=== PATIENT | female | born 1935 | race Two or more races ===

== ENCOUNTER 2022-08-05 21:42 | Inpatient (IN) | payer MEDICAID, OTHER ==
[~2022-08-05] VITALS: Ht 157.5 cm; Wt 39.5 kg
[2022-08-05] MEDS ORDERED: IV NS 0.9% 500 ML BAG IV ONE (22:00)
--- NOTE | 2022-08-05 22:27 | NUR ---
COVID AND INFLUENZA SWAB COLLECTED
--- NOTE | 2022-08-05 22:42 | NUR ---
IV LINE ESTABLISHED, LAC22G
--- NOTE | 2022-08-05 22:43 | NUR ---
BLOOD COLLECTED AND SENT TO LAB
[2022-08-05 23:13] LABS: BASOPHILS # (AUTO) 0.3 K/uL (0.0-0.2); BASOPHILS % (AUTO) 1.3 % (0.0-2.0); HEMATOCRIT 33 % (33-45); HEMOGLOBIN 10.1 g/dL (11.5-14.8); LYMPHOCYTES # (AUTO) 0.6 K/uL (0.8-4.8); LYMPHOCYTES % (AUTO) 2.9 % (20.0-44.0); MEAN CORPUSCULAR HGB CONC 31 g/dl (31.0-36.0); MEAN CORPUSCULAR VOLUME 67 fL (82-100); MONOCYTES % (AUTO) 4.8 % (2.0-12.0); NEUTROPHILS # (AUTO) 19.1 K/uL (1.8-8.9); PLATELET COUNT (AUTO) 564 K/uL (150-450); RED BLOOD CELL COUNT(AUTO) 4.93 MIL/uL (4.0-5.2)
[2022-08-05 23:24] LABS: CALCIUM, SERUM 9.3 mg/dL (8.5-10.1); CARBON DIOXIDE 29 mmol/L (21-32); CHLORIDE 96 mmol/L (98-107); CREATININE 0.8 mg/dL (0.6-1.3); GLUCOSE 137 mg/dL (74-106); POTASSIUM 3.3 mmol/L (3.5-5.1); SODIUM SERUM 136 mmol/L (136-145); UREA NITROGEN, BLOOD 29 mg/dL (7-18)
[2022-08-05 23:37] LABS: ALANINE AMINOTRANSFERASE 8 U/L (12-78); ALBUMIN 2.6 g/dL (3.4-5.0); ALKALINE PHOSPHATASE 82 U/L (46-116); ASPARTATE AMINOTRANSFERASE 13 U/L (15-37); BILIRUBIN,DIRECT 0.3 mg/dL (0.0-0.2); BILIRUBIN,TOTAL 0.6 mg/dL (0.2-1.0); TOTAL PROTEIN, SERUM 8.9 g/dL (6.4-8.2)
[2022-08-05 23:51] LABS: MAGNESIUM 1.9 mg/dL (1.8-2.4)
[2022-08-06] MEDS ORDERED: CEFTRIAXONE 1GM BAG (ER ONLY) 50 ML IV ONE (00:18)
[2022-08-06] MEDS: CEFTRIAXONE 1 G in IV D5W 50 ML IV ONE ×2 (00:19→00:36)
[2022-08-06] MEDS ORDERED: AZITHROMYCIN 500 MG in IV D5W 250 ML IV ONE (00:30)
[2022-08-06] MEDS ORDERED: AZITHROMYCIN 500 MG VIAL ONE (00:30)
--- NOTE | 2022-08-06 00:54 | NUR ---
report given to juan jose qureshi
[2022-08-06] MEDS ORDERED: TEMAZEPAM 15 MG CAPSULE PO PRN (01:00)
[2022-08-06] MEDS ORDERED: HYDROCODONE/APAP 5/325MG TABLET PO PRN (01:00)
[2022-08-06] MEDS ORDERED: ONDANSETRON HCL/PF 4 MG/2 ML VIAL IVP PRN (01:00)
[2022-08-06] MEDS ORDERED: MAG HYDROX/AL HYDROX/SIMETH 30 ML UDC PO PRN (01:00)
[2022-08-06] MEDS ORDERED: HYDROCODONE/APAP 10/325MG TABLET PO PRN (01:00)
[2022-08-06] MEDS ORDERED: MAGNESIUM HYDROXIDE 30 ML UDC PO PRN (01:00)
[2022-08-06] MEDS ORDERED: ACETAMINOPHEN 325 MG TABLET PO PRN (01:00)
[2022-08-06] MEDS ORDERED: Z GUARD REMEDY 4 OZ OINT TP PRN (01:00)
--- NOTE | 2022-08-06 01:06 | NUR ---
TRANSFERRED TO [facility] FLOOR IN STABLE CONDITION
--- NOTE | 2022-08-06 01:10 | NUR ---
MS SENIOR LEAD PROJECT MANAGER NOTE PT TRANSPORTED VIA GURNEY TO UNIT AT THIS TIME. PT ADMITTED TO MS UNIT FROM ER UNDER NEWSPAPER PHOTOGRAPHER DOROTHEA FOR ADMITTING DX CAP WITH SEPSIS. A/O X1 WITH GARBLED SPEECH. PT ON O2 @ 2LPM VIA NC, TOLERATING WELL. NO SOB OR S/S OF RESPIRATORY DISTRESS. WITH NON PRODUCTIVE COUGH. IV ACCESS LAC 20G SL INTACT AND PATENT. WITH SACRAL WOUND, WOUND CONSULT ORDERED. REFUSED BED BATH AND REFUSED TO REMOVE CLOTHING. PT ORIENTED TO UNIT, STAFF, AND ROOM. PT BELONGINGS ACCOUNTED FOR AND BELONGINGS LIST SIGNED. SAFETY PRECAUTIONS IN PLACE. BED IN LOWEST LOCKED POSITION, HOB ELEVATED, SIDE RAILS UP X3, AND CALL LIGHT AND TABLE WITHIN REACH. ALL NEEDS MET AT THIS TIME.
--- NOTE | 2022-08-06 02:39 | NUR ---
RN NOTE CALLED [facility] TO VERIFY MEDICATIONS ONE HOUR AGO. WAS INFORMED THAT THEY WILL "GET TO IT WHEN THEY CAN". NO MEDICATIONS HAVE BEEN VERIFIED. CHARGE NURSE JANICE AWARE.
[2022-08-06] MEDS: POTASSIUM CL. PREMIX PERIPHER. 50 ML IV SCH ×2 (03:14→04:07)
--- NOTE | 2022-08-06 03:15 | NUR ---
RN NOTE MEDICATION FINALLY VERIFIED. STARTED POTASSIUM IV. ALL NEEDS MET AT THIS TIME.
[2022-08-06 03:22] VITALS: BP 145/60
[2022-08-06 03:38] VITALS: BP 146/60
[2022-08-06] MEDS ORDERED: POTASSIUM CL. PREMIX PERIPHER. 50 ML ONE (03:58)
[2022-08-06 04:23] LABS: BAND % (MANUAL) 3 % (0.0-5.0); BASOPHILS % (MANUAL) 0 % (0.0-2.0); EOSINOPHILS % (MANUAL) 0 % (0-4); LYMPHOCYTES % (MANUAL) 2 % (16-48); MONOCYTES % (MANUAL) 6 % (0-11.0); NEUTROPHILS % (MANUAL) 89 (42-76)
--- NOTE | 2022-08-06 06:52 | NUR ---
MS RN CLOSING NOTE PT AWAKE IN BED. A/O X1 WITH GARBLED SPEECH. PT ON O2 @ 2LPM VIA NC, TOLERATING WELL. NO SOB OR S/S OF RESPIRATORY DISTRESS. WITH NON PRODUCTIVE COUGH. IV ACCESS LAC 20G SL INTACT AND PATENT. ALL DUE MEDS GIVEN ORDERED. KEPT CLEAN AND DRY. SAFETY PRECAUTIONS IN PLACE AT ALL TIMES. BED IN LOWEST LOCKED POSITION, HOB ELEVATED, SIDE RAILS UP X3, AND CALL LIGHT AND TABLE WITHIN REACH. ALL NEEDS MET AT THIS TIME AND WILL ENDORSE TO ONCOMING NURSE FOR MIGDALIA.
--- NOTE | 2022-08-06 07:20 | NUR ---
RN OPENING NOTE RECEIVED PATIENT IN BED, AWAKE, ALERT AND VERBALLY RESPONSIVE. NO SIGNS OF ACUTE DISTRESS NOTED. ON O2 INHALATION @2LPM VIA N/C, BREATHING EVEN AND UNLABORED. DENIES ANY PAIN OR DISCOMFORT AT THIS TIME. NOTED WITH IV ACCESS ON LEFT AC #20G, INTACT AND PATENT WITH IVF OF NS @ 75ML/HR. SAFETY MEASURE IN PLACE. BED IN LOWEST AND LOCKED POSITION, SIDE RAILS UP X2, CALL LIGHT PLACED WITHIN EASY REACH. WILL CONTINUE TO MONITOR PATIENT.
[2022-08-06] MEDS: IV NS 0.9% 1,000 ML IV PRN ×2 (07:28→22:20)
[2022-08-06 08:00] VITALS: BP 162/74
[2022-08-06] MEDS: PANTOPRAZOLE 40 MG TABLET.DR PO SCH (08:25)
[2022-08-06] MEDS ORDERED: CEFEPIME 1 GM in IV D5W 50 ML IV SCH (09:00)
--- NOTE | 2022-08-06 09:09 | NUR ---
WOUND CARE CONSULT: PT ADAMANTLY REFUSED SKIN ASSESSMENT. ADMISSION PHOTO INDICATES SACRAL DEEP TISSUE INJURY PRESENT ON ADMISSION. RECOMMENDATIONS MADE FOR SKIN PROTECTION. DISCUSSED WITH NURSING STAFF. MD IN AGREEMENT WITH PLAN OF CARE.
[2022-08-06] MEDS: CEFEPIME 2 GM in IV D5W 100 ML IV SCH (10:04)
--- NOTE | 2022-08-06 13:29 | NUR ---
Accounts Payable Analyst Consult dairy farmworker received a consult request for a possible APS report due to pt. living alone. Pt. is a 87 year old white female who was admitted for failure to thrive. SW met with pt. at bedside. SW attempted to conduct interview but pt appeared confused and did not want to be interviewed. SW offered pt. senior resources in which pt. refused. HARVEY discussed with nurse Ada who shared that pt.'s nephew (POA) would have more information and wanted to speak to a SW. HARVEY discussed the need for an APS report for neglect in which the nurse was agreeable. HARVEY will make an APS report through [facility] for possible self neglect.
--- NOTE | 2022-08-06 13:30 | NUR ---
Barber Collateral Note HARVEY contacted the pt.'s Power of Collector Of Internal Revenue (POA) who is the pt.'s nephew (Ghanshyam Camarillo - [phone]) to gather more information. Per POA, pt. [place] [address] and her room does not have a kitchen. Per nephew, she has refused SNF and LONGTERM and board and Care facilities but pt is unable to take care of herself, will not take her medication, will not eat or drink). POA expressed concern that she needs more help than she is getting. HARVEY informed POA that she will make an APS report for self neglect to makes sure pt. is being taken care of. POA inquired about placement for pt. in which HARVEY directed POA to disease case manager rn in which pt. was agreeable.
--- NOTE | 2022-08-06 14:16 | NUR ---
APS Report HARVEY made an APS report through the [facility]. The reference number is: [id number].
[2022-08-06 16:00] VITALS: BP 149/80
[2022-08-06] MEDS: GUAIFENESIN 300 MG/15 ML UDC PO PRN ×2 (17:37→23:46)
--- NOTE | 2022-08-06 18:40 | NUR ---
RN CLOSING NOTE PATIENT IN BED, AWAKE, ALERT AND VERBALLY RESPONSIVE. NO SIGNS OF ACUTE DISTRESS NOTED. REMAINS ON O2 INHALATION @2LPM VIA N/C, BREATHING EVEN AND UNLABORED. STILL NOTED WITH NON-PRODUCTIVE COUGH. COUGH MEDICATION GIVEN ORDERED. IV ACCESS ON LEFT AC #20G, INTACT AND PATENT WITH IVF OF NS @ 75ML/HR INFUSING WELL. PATIENT WITH EPISODES OF REFUSING CARE, WITHDRAWN, WANTED TO BE LEFT ALONE. SAFETY MEASURE IN PLACE. BED IN LOWEST AND LOCKED POSITION, SIDE RAILS UP X2, CALL LIGHT PLACED WITHIN EASY REACH. WILL ENDORSE TO NEXT SHIFT FOR CONTINUITY OF CARE.
--- NOTE | 2022-08-06 19:15 | NUR ---
MS RN OPENING NOTE PATIENT IN BED, AWAKE, CONFUSED AND TALKED WITH HERSELF. SHE IS ON 2 LPM OF OXYGEN VIA NC, NO SIGNS OF ACUTE DISTRESS NOTED. BREATHING EVEN AND UNLABORED. PT HAS NON-PRODUCTIVE COUGH. IV ACCESS ON LEFT AC #20G, INTACT AND PATENT WITH IVF OF NS @ 75ML/HR; INFUSING WELL. SAFETY MEASURE IN PLACE. BED IN LOWEST AND LOCKED POSITION, SIDE RAILS UP X3, CALL LIGHT AND TABLE WITHIN EASY REACH. WILL CONTINUE MONITOR THE PATIENT AND PROVIDE THE CARE PATIENT NEEDS.
[2022-08-06 20:00] VITALS: BP 148/78
[2022-08-06] MEDS: ALBUTEROL FS 2.5 MG/0.5 ML VIAL.NEB NEB SCH (21:25)
[2022-08-06] MEDS: IPRATROPIUM NEB FS 0.5 MG/2.5 ML AMPUL.NEB NEB SCH (21:25)
[2022-08-06] MEDS: AZITHROMYCIN 500 MG in IV D5W 250 ML IV SCH (21:25)
[2022-08-07] MEDS: ALBUTEROL FS 2.5 MG/0.5 ML VIAL.NEB NEB SCH ×4 (02:09→19:54)
[2022-08-07] MEDS: IPRATROPIUM NEB FS 0.5 MG/2.5 ML AMPUL.NEB NEB SCH ×4 (02:09→19:54)
--- NOTE | 2022-08-07 04:50 | NUR ---
MS RN NOTE PATIENT IS CONFUSED AND PULLED OUT HER IV ACCESS. ASSESSED THE PATIENT AND APPLIED THE BANDAGE AT THE SITE. PATIENT REFUSED BEING INSERTED ANOTHER IV ACCESS. CHARGE NURSE, LOVELY, NOTIFIED.
[2022-08-07 06:04] LABS: BASOPHILS % (AUTO) 0.1 % (0.0-2.0); EOSINOPHILS % (AUTO) 0.2 % (0.0-6.0); HEMATOCRIT 25 % (33-45); HEMOGLOBIN 7.9 g/dL (11.5-14.8); LYMPHOCYTES # (AUTO) 1.2 K/uL (0.8-4.8); LYMPHOCYTES % (AUTO) 7.9 % (20.0-44.0); MEAN CORPUSCULAR HGB CONC 31 g/dl (31.0-36.0); MEAN CORPUSCULAR VOLUME 66 fL (82-100); MONOCYTES # (AUTO) 1.1 K/uL (0.1-1.30); MONOCYTES % (AUTO) 7.3 % (2.0-12.0); NEUTROPHILS # (AUTO) 12.7 K/uL (1.8-8.9); NEUTROPHILS % (AUTO) 84.5 % (43.0-81.0); PLATELET COUNT (AUTO) 428 K/uL (150-450); RED BLOOD CELL COUNT(AUTO) 3.81 MIL/uL (4.0-5.2); WHITE BLOOD COUNT (AUTO) 15.1 K/uL (4.3-11.0)
[2022-08-07 06:41] LABS: ALANINE AMINOTRANSFERASE 8 U/L (12-78); ALBUMIN 1.8 g/dL (3.4-5.0); ALKALINE PHOSPHATASE 61 U/L (46-116); ASPARTATE AMINOTRANSFERASE 13 U/L (15-37); BILIRUBIN,DIRECT 0.2 mg/dL (0.0-0.2); BILIRUBIN,TOTAL 0.4 mg/dL (0.2-1.0); CALCIUM, SERUM 7.9 mg/dL (8.5-10.1); CARBON DIOXIDE 28 mmol/L (21-32); CHLORIDE 100 mmol/L (98-107); CREATININE 0.6 mg/dL (0.6-1.3); GLUCOSE 106 mg/dL (74-106); MAGNESIUM 1.6 mg/dL (1.8-2.4); PHOSPHORUS 2.4 mg/dL (2.5-4.9); POTASSIUM 3.1 mmol/L (3.5-5.1); SODIUM SERUM 134 mmol/L (136-145); TOTAL PROTEIN, SERUM 6.4 g/dL (6.4-8.2); UREA NITROGEN, BLOOD 16 mg/dL (7-18)
[2022-08-07 06:54] LABS: THYROID STIMULATING HORMONE 3.341 uIU/mL (0.358-3.74)
[2022-08-07] MEDS: PANTOPRAZOLE 40 MG TABLET.DR PO SCH ×3 (07:30→09:23)
--- NOTE | 2022-08-07 07:30 | NUR ---
MS RN CLOSING NOTE PATIENT IS IN BED, AWAKE, CONFUSED AND TALKED TO HERSELF. SHE IS ON 2 LPM OF OXYGEN VIA NC, NO SIGNS OF ACUTE DISTRESS NOTED. BREATHING EVEN AND UNLABORED. THROUGH THE NIGHT, BREATHING TREATMENT AND PRN COUGH SYRUP WERE GIVEN PER MD ORDER; TOLERATED WELL. IV ACCESS HAS BEEN PULLED OUT BY THE PATIENT; AND PATIENT IS REFUSING TO HAVE ANOTHER INSERTION OF THE IV ACCESS. SAFETY MEASURE IN PLACE. BED IN LOWEST AND LOCKED POSITION, SIDE RAILS UP X3, CALL LIGHT AND TABLE WITHIN EASY REACH. ENDORSED THE DAY SHIFT NURSE ABOUT THE PATIENT'S CONDITION.
[2022-08-07 08:00] VITALS: BP 120/55
[2022-08-07] MEDS: CEFEPIME 2 GM in IV D5W 100 ML IV SCH (09:00)
[2022-08-07] MEDS: GUAIFENESIN 300 MG/15 ML UDC PO PRN (09:21)
--- NOTE | 2022-08-07 09:27 | NUR ---
PATIENT KEPT ON REFUSING IV INSERTION. SHE ALSO REFUSED PROTONIX THIS AM AND ONLY WANTS HER COUGH MEDICATION.
[2022-08-07] MEDS ORDERED: POTASSIUM CHLORIDE 20 MEQ POWDER PACKET PO ONE (10:00)
[2022-08-07 11:37] LABS: LYMPHOCYTES % (MANUAL) 10 % (16-48); MONOCYTES % (MANUAL) 6 % (0-11.0); NEUTROPHILS % (MANUAL) 84 (42-76)
[2022-08-07] MEDS: Magnesium 1GM/D5W 100ML PREMIX 100 ML IV SCH ×2 (11:42→12:02)
[2022-08-07] MEDS ORDERED: NEUTRA PHOS 1 POWD.PACKET PO ONE (12:00)
[2022-08-07] MEDS: ENSURE CLEAR 237 ML LIQUID (MIX BERRY) PO SCH ×2 (12:19→16:13)
--- NOTE | 2022-08-07 12:19 | NUR ---
MARIO Oro MD WAS MADE AWARE ABOUT PT'S REFUSAL TO HAVE IV INSERTION.
[2022-08-07 16:00] VITALS: BP 146/84
--- NOTE | 2022-08-07 17:54 | NUR ---
END OF SHIFT SUMMARY PATIENT IS A/O X1-2, ON RA, SATURATING WELL. UNCOOPERATIVE. STILL NO IV ACCESS. PT DOESN'T WANT TO TAKE MEDS EXCEPT FOR COUGH SYRUP. INCONTINENCE CARE PROVIDED. SAFETY MEASURES MAINTAINED. BED IN LOWEST POSITION, BRAKES LOCKED. SIDE RAILS UP X2. CALL LIGHT WITHIN REACH. WILL ENDORSE CONTINUITY OF CARE TO ONCOMING SHIFT.
--- NOTE | 2022-08-07 19:00 | NUR ---
MS RN OPENING NOTE PATIENT IN BED, AWAKE, CONFUSED AND TALKED TO HERSELF. SHE IS ON 2 LPM OF OXYGEN VIA NC, NO SIGNS OF ACUTE DISTRESS NOTED. BREATHING EVEN AND UNLABORED. ACCORDING TO THE CHANGE SHIFT REPORT, THERE ARE NO IV ACCESS ON THE PATIENT. MD AWARE. EDUCATED THE PATIENT THAT SHE NEEDED AN IV ACCESS SO SHE COULD HAVE HER IV ANTIBIOTICS, PATIENT REFUSED. SAFETY MEASURE IN PLACE. BED IN LOWEST AND LOCKED POSITION, SIDE RAILS UP X3, CALL LIGHT AND TABLE WITHIN EASY REACH. WILL CONTINUE MONITOR THE PATIENT AND PROVIDE THE CARE PATIENT NEEDS.
[2022-08-07 20:00] VITALS: BP 132/50
--- NOTE | 2022-08-07 20:56 | NUR ---
MS RN NOTE REORIENTED THE PATIENT AND EDUCATED THE PATIENT THAT SHE HAS IV MEDICATION DUE. WE NEED TO INSERT AN IV ACCESS FOR HER. PATIENT SHOWS HER LEFT AC AND FA, AND SAID "NO". "I DON'T WANT IT". CHARGE NURSE, LOVELY, NOTIFIED.
[2022-08-07] MEDS: AZITHROMYCIN 500 MG in IV D5W 250 ML IV SCH (21:00)
--- NOTE | 2022-08-07 21:51 | NUR ---
MS RN NOTE PATIENT REFUSED TO HAVE IV ACCESS AND REFUSED TO HAVE IV MEDICATION DUE AT 2100. CHARGE NURSE, LOVELY, NOTIFIED.
[2022-08-08] VITALS: BP 163/83
[2022-08-08] MEDS: IPRATROPIUM NEB FS 0.5 MG/2.5 ML AMPUL.NEB NEB SCH ×4 (02:00→20:12)
[2022-08-08] MEDS: ALBUTEROL FS 2.5 MG/0.5 ML VIAL.NEB NEB SCH ×4 (02:00→19:30)
[2022-08-08 05:45] LABS: BASOPHILS % (AUTO) 0.3 % (0.0-2.0); EOSINOPHILS % (AUTO) 0.8 % (0.0-6.0); HEMATOCRIT 25 % (33-45); HEMOGLOBIN 7.9 g/dL (11.5-14.8); LYMPHOCYTES % (AUTO) 13.3 % (20.0-44.0); MEAN CORPUSCULAR HGB CONC 32 g/dl (31.0-36.0); MEAN CORPUSCULAR VOLUME 66 fL (82-100); MONOCYTES # (AUTO) 0.8 K/uL (0.1-1.30); MONOCYTES % (AUTO) 10.4 % (2.0-12.0); NEUTROPHILS # (AUTO) 5.5 K/uL (1.8-8.9); NEUTROPHILS % (AUTO) 75.2 % (43.0-81.0); PLATELET COUNT (AUTO) 379 K/uL (150-450); RED BLOOD CELL COUNT(AUTO) 3.78 MIL/uL (4.0-5.2); WHITE BLOOD COUNT (AUTO) 7.3 K/uL (4.3-11.0)
[2022-08-08 05:59] LABS: CALCIUM, SERUM 7.8 mg/dL (8.5-10.1); CARBON DIOXIDE 29 mmol/L (21-32); CHLORIDE 100 mmol/L (98-107); CREATININE 0.6 mg/dL (0.6-1.3); GLUCOSE 93 mg/dL (74-106); MAGNESIUM 1.6 mg/dL (1.8-2.4); POTASSIUM 3.2 mmol/L (3.5-5.1); SODIUM SERUM 137 mmol/L (136-145); UREA NITROGEN, BLOOD 13 mg/dL (7-18)
--- NOTE | 2022-08-08 07:09 | NUR ---
MS RN CLOSING NOTE PATIENT IN BED, SLEEPING. SHE IS ON 2 LPM OF OXYGEN VIA NC, NO SIGNS OF ACUTE DISTRESS NOTED. BREATHING EVEN AND UNLABORED. SHE REFUSED MEDICATION AND IV INSERTION DURING THE SHIFT. EDUCATED THE PATIENT THAT SHE NEEDED AN IV ACCESS SO SHE COULD HAVE HER IV ANTIBIOTICS, PATIENT REFUSED. SAFETY MEASURE IN PLACE. BED IN LOWEST AND LOCKED POSITION, SIDE RAILS UP X3, CALL LIGHT AND TABLE WITHIN EASY REACH. WILL ENDORSE NEXT SHIFT NURSE FOR CONTINUING PATIENT CARE.
--- NOTE | 2022-08-08 07:48 | NUR ---
MS RN OPENING NOTE Patient in bed, asleep. A/O x 1, confused. On O2 at 2 LPM via NC. No SOB or s/s of distress noted. No IV access, patient refusing IV re-insertion, MD aware per night guard nurse. Safety precautions in place: bed in low, locked position; siderailsup x 2; call light within reach. Will continue to monitor.
[2022-08-08] MEDS: ENSURE CLEAR 237 ML LIQUID (MIX BERRY) PO SCH ×3 (08:15→17:42)
[2022-08-08] MEDS: CEFEPIME 2 GM in IV D5W 100 ML IV SCH (09:00)
--- NOTE | 2022-08-08 09:00 | NUR ---
RN NOTE Patient is refusing IV -reinsertion and IV antibiotics. Spoke to patient's nephew about patient refusing everything.
[2022-08-08] MEDS ORDERED: K PHOS NEUTRAL 250 MG TABLET PO ONE (10:00)
[2022-08-08] MEDS ORDERED: MAGNESIUM OXIDE 400 MG TABLET PO ONE (10:00)
[2022-08-08] MEDS ORDERED: POTASSIUM CHLORIDE 20 MEQ TAB.PRT.SR PO SCH (10:00)
--- NOTE | 2022-08-08 10:00 | NUR ---
RN NOTE Patient refused Potassium and magnesium replacement. Ghanshyam, nephew notified. Spoke and updated patient's nephew about patient condition. Aman charge nurse spoke with him as well.
[2022-08-08] MEDS ORDERED: OLANZAPINE 2.5 MG TABLET PO PRN (16:30)
[2022-08-08] MEDS ORDERED: OLANZAPINE 10 MG VIAL IM PRN (17:30)
--- NOTE | 2022-08-08 18:25 | NUR ---
RN NOTE Patient refusing all meds and treatments, getting agitated. PRN Zyprexa 2.5 mg given. After administration, was able to re-insert IV on LFA #22, flushes well.
--- NOTE | 2022-08-08 19:30 | NUR ---
MS RN CLOSING NOTE Patient in bed, resting. A/O x 1, confused. On O2 at 2 LPM via NC. No SOB or s/s of distress noted. IV access on LFA #22, intact and patent. All needs attended to. Patient kept clean and dry. Safety precautions in place: bed in low, locked position; siderailsup x 2; call light within reach. Will endorse to button broacher nurse for MIGDALIA.
--- NOTE | 2022-08-08 19:45 | NUR ---
MS RN OPENING NOTES: RECEIVED PATIENT AWAKE IN BED, BED IN LOW POSITION, CALL LIGHTS WITHIN REACH, NO COMPLAIN OF PAIN AND DISCOMFORT AT THIS TIME, ON ROOM AIR SATURATING WELL, PATIENT IS A/OX1 CONFUSED, IV LINE AT RFA#22 WITH ONGOING 0.2SQI035HP/HR INFUSING WELL, PATIENT KEPT CLEAN AND DRY ALL NEEDS MET WILL CONTINUE TO MONITOR.
[2022-08-08 20:00] VITALS: BP 144/69
[2022-08-08] MEDS: AZITHROMYCIN 500 MG in IV D5W 250 ML IV SCH (21:45)
[2022-08-09] MEDS: ALBUTEROL FS 2.5 MG/0.5 ML VIAL.NEB NEB SCH ×4 (01:30→19:30)
[2022-08-09] MEDS: IPRATROPIUM NEB FS 0.5 MG/2.5 ML AMPUL.NEB NEB SCH ×5 (01:55→19:49)
[2022-08-09 06:01] LABS: CALCIUM, SERUM 8.2 mg/dL (8.5-10.1); CREATININE 0.6 mg/dL (0.6-1.3); MAGNESIUM 1.5 mg/dL (1.8-2.4); PHOSPHORUS 2.8 mg/dL (2.5-4.9); POTASSIUM 2.9 mmol/L (3.5-5.1)
--- NOTE | 2022-08-09 06:20 | NUR ---
MS RN CLOSING NOTES: PATIENT SLEEP IN BED COMFORTABLY, AROUSABLE TO VERBAL STIMULI, BED IN LOW POSITION, CALL LIGHTS WITHIN REACH, NO COMPLAIN OF PAIN AND DISCOMFORT AT THIS TIME, ON O2 INHALATION AT 2LPM SATURATING WELL,IV LINE AT RFA#22 WITH ONGOING NSS@75ML/HR INFUSING WELL, PATIENT KEPT CLEAN AND DRY ALL NEEDS MET ENDORSE TO INCOMING SHIFT.
[2022-08-09] MEDS: PANTOPRAZOLE 40 MG TABLET.DR PO SCH ×2 (07:30→07:45)
--- NOTE | 2022-08-09 07:35 | NUR ---
MS RN OPENING NOTES: RECEIVED PATIENT AWAKE IN BED , A/O X 1 WITH CONFUSION , NO COMPLAIN OF PAIN AND DISCOMFORT AT THIS TIME, ON ROOM AIR WITH NO SOB OR DISTRESS NOTED , IV LINE AT RFA#22 WITH ONGOING 0.9 NS 75ML/HR INFUSING WELL, SAFETY MEASURES PROVIDED , BED IN LOWEST POSITION , SIDE RAILS UP X 2 AND WILL CONTINUE TO MONITOR FOR ANY CHANGES .
[2022-08-09 07:48] LABS: BASOPHILS % (AUTO) 0.4 % (0.0-2.0); EOSINOPHILS % (AUTO) 1.1 % (0.0-6.0); HEMATOCRIT 27 % (33-45); HEMOGLOBIN 8.5 g/dL (11.5-14.8); LYMPHOCYTES # (AUTO) 1.1 K/uL (0.8-4.8); LYMPHOCYTES % (AUTO) 11.3 % (20.0-44.0); MEAN CORPUSCULAR HGB CONC 31 g/dl (31.0-36.0); MEAN CORPUSCULAR VOLUME 66 fL (82-100); MONOCYTES % (AUTO) 10.6 % (2.0-12.0); NEUTROPHILS # (AUTO) 7.4 K/uL (1.8-8.9); NEUTROPHILS % (AUTO) 76.6 % (43.0-81.0); PLATELET COUNT (AUTO) 420 K/uL (150-450); RED BLOOD CELL COUNT(AUTO) 4.11 MIL/uL (4.0-5.2); WHITE BLOOD COUNT (AUTO) 9.7 K/uL (4.3-11.0)
[2022-08-09 08:00] VITALS: BP 144/66
[2022-08-09] MEDS: ENSURE CLEAR 237 ML LIQUID (MIX BERRY) PO SCH ×3 (08:54→17:04)
[2022-08-09] MEDS: POTASSIUM CHLORIDE 20 MEQ TAB.PRT.SR PO SCH ×2 (10:00→10:05)
[2022-08-09] MEDS: CEFEPIME 2 GM in IV D5W 100 ML IV SCH (10:02)
[2022-08-09] MEDS: MAGNESIUM OXIDE 400 MG TABLET PO ONE ×2 (10:05→10:38)
[2022-08-09] MEDS: Magnesium 1GM/D5W 100ML PREMIX 100 ML IV SCH ×2 (11:18→12:11)
[2022-08-09] MEDS: POTASSIUM CL. PREMIX PERIPHER. 50 ML IV SCH ×6 (11:21→16:31)
[2022-08-09] MEDS ORDERED: OLANZAPINE 10 MG VIAL IM PRN (12:30)
--- NOTE | 2022-08-09 19:20 | NUR ---
MS RN CLOSING NOTES: PATIENT AWAKE IN BED , A/O X 1 WITH CONFUSION , NO COMPLAIN OF PAIN AND DISCOMFORT AT THIS TIME, ON ROOM AIR WITH NO SOB OR DISTRESS NOTED , IV LINE AT RFA#22 WITH ONGOING 0.9 NS 75ML/HR INFUSING WELL, ALL DUE MEDS GIVEN ORDERED , NOTED WITH LOW MAGNESIUM LEVEL AND REPLACED WITH 2 GM IV OF MG TOLERATED WELL , K WITH 2.9 AND WITH ORDER OF IV OF 60 MEQ ORDERED GIVEN AND TOLERATED WELL , SAFETY MEASURES PROVIDED , BED IN LOWEST POSITION , SIDE RAILS UP X 2 AND ENDORSED TO NEXT SHIFT .
[2022-08-09 20:00] VITALS: BP 154/68
--- NOTE | 2022-08-09 20:00 | NUR ---
MS RN OPENING NOTES RECEIVED PATIENT AWAKE IN BED, A/O X 1 WITH CONFUSION. NO COMPLAIN OF PAIN AND DISCOMFORT AT THIS TIME, ON ROOM AIR WITH NO SOB OR DISTRESS NOTED. IV ACCESS AT RFA#22 WITH ONGOING 0.9 NS @ 75ML/HR INFUSING WELL, SAFETY MEASURES MAINTAINED, WILL CONTINUE TO MONITOR.
[2022-08-09] MEDS: AZITHROMYCIN 500 MG in IV D5W 250 ML IV SCH (20:40)
[2022-08-09] MEDS: IV NS 0.9% 1,000 ML IV PRN (23:02)
[2022-08-10] MEDS: ALBUTEROL FS 2.5 MG/0.5 ML VIAL.NEB NEB SCH ×2 (00:49→07:35)
[2022-08-10] MEDS: IPRATROPIUM NEB FS 0.5 MG/2.5 ML AMPUL.NEB NEB SCH ×4 (00:49→19:30)
[2022-08-10 06:11] LABS: BASOPHILS # (AUTO) 0.1 K/uL (0.0-0.2); BASOPHILS % (AUTO) 0.6 % (0.0-2.0); EOSINOPHILS % (AUTO) 1.1 % (0.0-6.0); HEMATOCRIT 27 % (33-45); HEMOGLOBIN 8.5 g/dL (11.5-14.8); LYMPHOCYTES # (AUTO) 1.3 K/uL (0.8-4.8); LYMPHOCYTES % (AUTO) 13.2 % (20.0-44.0); MEAN CORPUSCULAR HGB CONC 32 g/dl (31.0-36.0); MEAN CORPUSCULAR VOLUME 67 fL (82-100); MONOCYTES # (AUTO) 1.3 K/uL (0.1-1.30); MONOCYTES % (AUTO) 12.8 % (2.0-12.0); NEUTROPHILS # (AUTO) 7.2 K/uL (1.8-8.9); NEUTROPHILS % (AUTO) 72.3 % (43.0-81.0); PLATELET COUNT (AUTO) 410 K/uL (150-450)
--- NOTE | 2022-08-10 06:40 | NUR ---
MS RN CLOSING NOTES PATIENT AWAKE IN BED, A/O X 1 WITH CONFUSION. NO COMPLAIN OF PAIN AND DISCOMFORT AT THIS TIME, ON ROOM AIR WITH NO SOB OR DISTRESS NOTED. IV ACCESS AT RFA#22 WITH ONGOING 0.9 NS @ 75ML/HR INFUSING WELL, SAFETY MEASURES MAINTAINED, WILL ENDORSE TO NEXT SHIFT RN FOR MIGDALIA.
[2022-08-10 07:00] VITALS: BP 132/63
[2022-08-10] MEDS: PANTOPRAZOLE 40 MG TABLET.DR PO SCH (07:25)
[2022-08-10 07:29] LABS: CALCIUM, SERUM 8.2 mg/dL (8.5-10.1); CARBON DIOXIDE 27 mmol/L (21-32); CHLORIDE 105 mmol/L (98-107); CREATININE 0.5 mg/dL (0.6-1.3); GLUCOSE 93 mg/dL (74-106); POTASSIUM 3.8 mmol/L (3.5-5.1); SODIUM SERUM 139 mmol/L (136-145); UREA NITROGEN, BLOOD 6 mg/dL (7-18)
--- NOTE | 2022-08-10 07:45 | NUR ---
RN OPENING NOTE RECEIVED PATIENT AWAKE IN BED , A/O X 1 WITH CONFUSION, NO COMPLAIN OF PAIN AND DISCOMFORT AT THIS TIME, ON ROOM AIR WITH NO SOB OR DISTRESS NOTED , IV LINE AT RFA#22 RUNNING NS 75ML/HR INFUSING WELL. SAFETY MEASURES IMPLEMENTED: CALL LIGHT AND TABLE WITHIN REACH, SIDE RAILS UP X 2, BED IN LOWEST LOCKED POSITION. WILL CONTINUE TO MONITOR.
[2022-08-10] MEDS: ENSURE CLEAR 237 ML LIQUID (MIX BERRY) PO SCH ×3 (08:02→16:18)
[2022-08-10] MEDS: CEFEPIME 2 GM in IV D5W 100 ML IV SCH (08:04)
[2022-08-10] MEDS: ALBUTEROL FS 2.5 MG/3 ML VIAL.NEB NEB SCH ×3 (08:12→19:30)
--- NOTE | 2022-08-10 10:35 | NUR ---
RN NOTE PATIENT FOUND ON FLOOR @1025 BY ANOTHER RN. ASSESSED PATIENT. NO PAIN, VS STABLE, NO LOC INJURY. PT EVAL. NO INJURIES AT THE MOMENT. PATIENT ACCOMPANIED WITH 2 RN BACK TO BED. BED ALARM IS ON. BEDPAN PROVIDED. DR TABARES NOTIFIED @1030, NO NEW ORDERS. WILL CONTINUE TO CLOSE MONITOR PATIENT AND ASSIST NEEDED. INCIDENT REPORT TO BE COMPLETED.
[2022-08-10] MEDS ORDERED: Lactose-Free Food PO (13:46)
[2022-08-10] MEDS ORDERED: OLAN5TAB3 PO (13:46)
[2022-08-10 16:00] VITALS: BP 129/65
[2022-08-10] MEDS: IV NS 0.9% 1,000 ML IV PRN (16:28)
--- NOTE | 2022-08-10 18:00 | NUR ---
RN NOTE INCIDENT REPORT COMPLETED. UNIQUE ID:[id number]
--- NOTE | 2022-08-10 18:45 | NUR ---
RN CLOSING NOTE PATIENT AWAKE IN BED, A/O X 1 WITH CONFUSION. NO COMPLAIN OF PAIN AND DISCOMFORT AT THIS TIME, ON ROOM AIR WITH NO SOB OR DISTRESS NOTED. IV ACCESS AT LFA #22G RUNNING NS @ 75ML/HR INFUSING WELL, SAFETY MEASURES MAINTAINED, WILL ENDORSE TO NEXT SHIFT RN FOR MIGDALIA.
--- NOTE | 2022-08-10 19:15 | NUR ---
MS RN OPENING NOTES RECEIVED PT AWAKE IN BED, WATCHING TV AT THIS TIME. A/O X1, CONFUSED. NO COMPLAIN OF PAIN AND DISCOMFORT AT THIS TIME. ON RA WITH NO SOB OR DISTRESS NOTED. IV ACCESS AT LFA #22G RUNNING NS @ 75ML/HR INFUSING WELL. SAFETY MEASURES IN PLACE: BED LOCKED AND IN LOW POSITION, SIDE RAILS UP X3, BED ALARM ON, CALL LIGHT AND TRAY TABLE WITHIN REACH. WILL CONTINUE TO MONITOR AND ASSIST.
[2022-08-10 20:00] VITALS: BP 130/77
[2022-08-11] MEDS: IPRATROPIUM NEB FS 0.5 MG/2.5 ML AMPUL.NEB NEB SCH ×2 (00:41→07:35)
[2022-08-11] MEDS: ALBUTEROL FS 2.5 MG/3 ML VIAL.NEB NEB SCH ×2 (00:41→07:35)
--- NOTE | 2022-08-11 05:15 | NUR ---
RN NOTES PT REFUSED SKIN ASSESSMENT AND WOUND CARE OF SACRAL WOUND. WILL CONTINUE TO MONITOR AND ENDORSE TO NEXT SHIFT.
--- NOTE | 2022-08-11 07:02 | NUR ---
MS RN CLOSING NOTES PT SLEEPING IN BED AT THIS TIME. A/O X1, CONFUSED. DENIES PAIN AND DISCOMFORT AT THIS TIME. STABLE ON RA WITH NO SOB OR DISTRESS NOTED. IV ACCESS AT LFA #22G RUNNING NS @ 75ML/HR INFUSING WELL. SKIN/WOUND CARE IMPLEMENTED. ALL CARE PROVIDED AND ADMINISTERED MEDICATIONS TOLERATED WELL. SAFETY MEASURES MAINTAINED: BED LOCKED AND IN LOW POSITION, SIDE RAILS UP X3, BED ALARM ON, CALL LIGHT AND TRAY TABLE WITHIN REACH. WILL ENDORSE MIGDALIA TO DAY SHIFT NURSE.
--- NOTE | 2022-08-11 07:30 | NUR ---
RN Opening Note Patient AOx2, not able to express her concerns. Patient with no signs of respiratory distress or discomfort, IV with no signs of infiltration. All safety precautions taken, call light and table within reach bed locked and at lowest position. Will continue to monitor throughout shift and provide care as needed.
[2022-08-11] MEDS: ENSURE CLEAR 237 ML LIQUID (MIX BERRY) PO SCH (08:00)
[2022-08-11] MEDS: PANTOPRAZOLE 40 MG TABLET.DR PO SCH (09:02)
[2022-08-11] MEDS: CEFEPIME 2 GM in IV D5W 100 ML IV SCH (09:03)
--- NOTE | 2022-08-11 11:04 | NUR ---
wedding transportation driver Note Patient AOx2, not able to express her concerns. Patient with no signs of respiratory distress or discomfort, IV with no signs of infiltration. Patient ready for discharge to [facility] ph. [phone] Angela. Provided report and commercial driver's license driver given medical records. All safety precautions taken, patient wheeled safely to main entrance.
== END 2022-08-11 11:00 | disposition home or self-care (01) | DRG 720 ==
LOC: ER 21:43 → MED 08-06 00:45
PROVIDERS: ADMIT Nurse Practitioner Acute Care
DX: A41.9 Sepsis, unspecified organism (principal); G93.41 Metabolic encephalopathy; J15.9 Unspecified bacterial pneumonia; E87.8 Other disorders of electrolyte and fluid balance, not elsewhere classified; R62.7 Adult failure to thrive; F03.90 Unspecified dementia, unspecified severity, without behavioral disturbance, psychotic disturbance, mood disturbance, and anxiety; E86.0 Dehydration; R65.20 Severe sepsis without septic shock; Z68.1 Body mass index [BMI] 19.9 or less, adult; E87.6 Hypokalemia; R79.89 Other specified abnormal findings of blood chemistry; Z20.822 Contact with and (suspected) exposure to COVID-19
CPT/HCPCS: 36415; 71045-TC; 80048-TC; 80076-TC; 82550-TC; 83735-TC; 83880; 84100-TC; 84443-TC; 84484-TC; 85025-TC; 87040-TC; 87081-TC; 94799-TC; 97110-TC; 97530-TC; C9803; G0378; J0456; J0692; J0696; J3475; J3480; J3490; J7030; J7040; J7050; J7060